=== PATIENT | male | born 1995 | race Hispanic/Latino ===

== ENCOUNTER → 2024-04-04 | Day surgery (SDC) | payer MEDICARE ==
[~2024-04-04] MED LIST: ASPIRIN81 MG PO; METOPROLOL SUCC25 MG PO
[2024-04-04] MEDS: LACTATED RINGER'S 1,000 ML ONE (06:09)
[2024-04-04 07:21] VITALS: TEMP 97
[2024-04-04 07:50] VITALS: BP 116/72; PULSE 82; RESP 16; O2SAT 98
== END | disposition home or self-care (01) ==
LOC: OR 05:35
PROVIDERS: ATTEND Internal Medicine Gastroenterology
DX: K92.1 Melena (principal); K64.8 Other hemorrhoids; I10 Essential (primary) hypertension; Z78.9 Other specified health status; E66.9 Obesity, unspecified; Z01.810 Encounter for preprocedural cardiovascular examination; Z79.82 Long term (current) use of aspirin; Z79.899 Other long term (current) drug therapy; Z68.29 Body mass index [BMI] 29.0-29.9, adult
CPT/HCPCS: 45378; 93005; J7121